=== PATIENT | male | born 1935 ===

== ENCOUNTER → 2018-11-08 | Outpatient (CLI) | payer OTHER | END | disposition home or self-care (01) | LOC: NUCLEAR 09:42 | DX: I50.9 Heart failure, unspecified (principal) ==

== ENCOUNTER → 2018-12-17 | Outpatient (CLI) | payer OTHER | END | disposition home or self-care (01) | LOC: NUCLEAR 07:00 | DX: I20.9 Angina pectoris, unspecified (principal) | CPT/HCPCS: 78452; 93017; A9500; J0153 ==

== ENCOUNTER 2019-06-03 07:10 | Outpatient (CLI) | payer OTHER | END 2019-06-03 07:14 | disposition home or self-care (01) | LOC: SONOGRAMA 07:10 → MAMO-SONO 08:15 | DX: R10.84 Generalized abdominal pain (principal) ==